=== PATIENT | female | born 1965 | race Caucasian/White ===

== ENCOUNTER 2023-05-16 08:20 | Outpatient (CLI) | payer BC | END 2023-05-16 08:21 | disposition home or self-care (01) | LOC: BICMAMMO 08:20 | PROVIDERS: ATTEND Family Medicine | DX: Z12.31 Encounter for screening mammogram for malignant neoplasm of breast (principal); Z91.89 Other specified personal risk factors, not elsewhere classified | CPT/HCPCS: 77063; 77067 ==

== ENCOUNTER 2023-12-25 09:37 | Outpatient (CLI) | payer BC | END 2023-12-25 09:38 | disposition home or self-care (01) | LOC: SCSRAD 09:37 | PROVIDERS: ATTEND Family Medicine | DX: M79.89 Other specified soft tissue disorders (principal) | CPT/HCPCS: 71046; 74019 ==

== ENCOUNTER 2024-03-10 06:15 | Day surgery (SDC) | payer OTHER ==
[2024-03-09 10:44] VITALS: BMI 26.7
[2024-03-10] MEDS ORDERED: EPINEPHrine 1 MG/ML VIAL ONE (06:36)
[2024-03-10] MEDS ORDERED: Bupivacaine PF 0.5% 30 ML VIAL ONE (06:36)
[2024-03-10] MEDS ORDERED: CEFAZOLIN 2 GM VIAL ONE (07:02)
[2024-03-10] MEDS ORDERED: Lidocaine 1% PF 5 ML VIAL ONE (07:10)
[2024-03-10] MEDS ORDERED: PROPOFOL 40 ML ONE (07:10)
[2024-03-10] MEDS ORDERED: PROPOFOL 20 ML ONE (07:57)
[2024-03-10] MEDS ORDERED: Sodium Chloride 0.9% 100 ML ONE (08:10)
== END 2024-03-10 09:46 | disposition home or self-care (01) ==
LOC: SDC 06:15
PROVIDERS: ATTEND Student in an Organized Health Care Education/Training Program
PROC: 0JB60ZZ Excision of Chest Subcutaneous Tissue and Fascia, Open Approach (ICD-10-PCS; principal; 2024-03-10)
DX: D17.1 Benign lipomatous neoplasm of skin and subcutaneous tissue of trunk (principal); E78.5 Hyperlipidemia, unspecified; M19.90 Unspecified osteoarthritis, unspecified site; Z98.890 Other specified postprocedural states; Z88.1 Allergy status to other antibiotic agents
CPT/HCPCS: 88304; J0171; J0665; J2704